=== PATIENT | female | born 1965 | race Two or more races ===

== ENCOUNTER 2017-10-08 23:32 | Emergency (ER) | payer BC ==
[~2017-10-08] VITALS: Ht 154.9 cm; Wt 72.6 kg
[2017-10-08] MEDS ORDERED: SIMVASTATIN10 MG (23:38)
[2017-10-09] MEDS ORDERED: KETO10TA2 PO (01:23)
== END 2017-10-09 01:39 | disposition home or self-care (01) ==
LOC: ER 23:32
DX: S93.491A Sprain of other ligament of right ankle, initial encounter (principal); X50.0XXA Overexertion from strenuous movement or load, initial encounter; Y93.11 Activity, swimming; Y92.59 Other trade areas as the place of occurrence of the external cause; Y99.8 Other external cause status